=== PATIENT | male | born 1940 | race Caucasian/White ===

== ENCOUNTER 2016-10-11 09:12 | Day surgery (SDC) | payer MEDICARE, BC ==
[~2016-10-11 09:12] MED LIST: ALLOPURINOL300 MG PO; ASPIRIN CHILDRE81 M1 PO; LORTAB 5/500 501 TAB PO; METOPROLOL100 MG PO; QUINAPRIL40 MG PO; SIMVASTATIN40 MG PO; VERAPAMIL240 MG PO
--- NOTE | 2016-10-11 10:28 | Operative Note ---
Endoscopy Report Date: 10/11/16 Preoperative diagnosis: History of precancerous polyps and previous history of colon cancer Procedure Type of procedure: Total colonoscopy with snare polypectomy Indications:Patient is a very pleasant 76-year-old white male whom I have followed in the office for quite some time. 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 He did have a subsequent colonoscopy, last one approximately 2 years ago. At that time he did have a couple of tubular adenomas. He is without complaints. His bowels are moving regularly and he has no rectal bleeding. Consent was obtained and patient was taken to same-day surgery endoscopy procedure room. Adequate intravenous sedation was achieved with titration of 9 mg Versed and 200 g fentanyl. I'll stiffness Olympus colonoscope was inserted via the anus. With some difficulty due to significant floppiness of the sigmoid colon it was advanced to the anastomosis. Ileocolic anastomosis was identified in the proximal transverse colon. In the region of colon just distal to the anastomosis there was an irregular but small polyp removed with hot snare. Colonoscope was withdrawn through the colon with careful surveillance. Some sigmoid diverticulosis. Retroflexion revealed nonpathologic internal hemorrhoids. Colonoscope was withdrawn. Findings 1. Polyp 2. Diverticulosis Follow-Up Follow-Up: Likely plan repeat colonoscopy 3 years at [id number]
[2016-10-11 16:30] VITALS: BP 109/59
== END 2016-10-11 11:00 | disposition home or self-care (01) ==
LOC: SDC 09:12
PROVIDERS: Surgery
PROC: 0DBE8ZX Excision of Large Intestine, Via Natural or Artificial Opening Endoscopic, Diagnostic (ICD-10-PCS; principal; 2016-10-11 10:00)
DX: Z85.038 Personal history of other malignant neoplasm of large intestine (principal); Z09 Encounter for follow-up examination after completed treatment for conditions other than malignant neoplasm; Z86.010 Personal history of colon polyps; K57.30 Diverticulosis of large intestine without perforation or abscess without bleeding; K63.5 Polyp of colon